=== PATIENT | male | born 1940 | race Caucasian/White ===

== ENCOUNTER 2018-10-05 11:29 | Observation (INO) | payer OTHER, SELFPAY ==
[2018-10-05] VITALS (8 sets, daily range): BP systolic 91–122; BP diastolic 49–67; PULSE 58–115; RESP 16–25; TEMP 36.7–38.2; O2SAT 95–97; BMI 30.4
--- NOTE | 2018-10-05 12:10 | DI.RAD.S_ITS ---
PROCEDURE: XR CHEST 1V INDICATIONS: FEVER TECHNIQUE: One view of the chest was acquired. COMPARISON: None. FINDINGS: Surgical changes and devices: None. Lungs and pleura: Patchy areas of opacity are present overlying the right upper lobe. Mediastinum: Mediastinal contours appear normal. Heart size is normal. Bones and chest wall: No suspicious bony lesions. Overlying soft tissues appear unremarkable. IMPRESSION: Patchy right upper lobe opacities suggestive of pneumonia. Recommend interval followup to document resolution and exclude presence of underlying mass lesion. Dictated by: Lisa Jerry M.D. on 10/05/2018 at 12:31 Approved by: Lisa Jerry M.D. on 10/05/2018 at 12:32
[2018-10-05] MEDS: SODIUM CHLORIDE 0.9% 1,000 ML 200 ML IV (12:31)
[2018-10-05] MEDS: ACETAMINOPHEN 325 MG TABLET 650 MG PO ×2 (12:31→18:33)
[2018-10-05 12:41] LABS: Add Manual Diff / Slide Review NO; Basophils Percent Auto 0.1 % (0-2); Hemoglobin 14.1 g/dL (13.5-17.5); Lymphocytes Percent Auto 3.9 % (25-40); Mean Corpuscular HGB Conc 33.5 % (30-36); Mean Corpuscular Hemoglobin 31.4 PG (26-34); Mean Corpuscular Volume 93.8 fL (80-100); Monocytes Percent Auto 7.4 % (3-14); Neutrophils Absolute Auto 13600 /uL (3000-5900); Neutrophils Percent Auto 88.6 % (50-75); Platelet Count 187 X10^3/uL (150-400); Red Blood Cell Count 4.48 X10^6/uL (4.5-5.9); Red Cell Distribution Width 13.6 % (11.6-14.8); White Blood Cell Count 15.3 X10^3/uL (4.5-11.0)
[2018-10-05 12:45] LABS: INR 1.1 (0.9-1.3)
[2018-10-05 12:47] LABS: PTT Partial Thromboplastin Tim 25 SECONDS (26.4-36.2)
[2018-10-05 12:52] LABS: Lactate (Lactic Acid) 1.2 mmol/L (0.7-2.1)
[2018-10-05 12:54] LABS: Alanine Aminotransferase 23 IU/L (21-72); Albumin 4.6 g/dL (3.5-5.0); Albumin Globulin Ratio 1.8 (1.0-2.8); Alkaline Phosphatase 68 U/L (38-126); Aspartate Aminotransferase 27 IU/L (17-59); Bilirubin Total 0.8 mg/dL (0.2-1.3); Blood Urea Nitrogen 20 mg/dL (9-20); Calcium 10.3 mg/dL (8.4-10.2); Carbon Dioxide 24 mmol/L (22-32); Chloride 106 mmol/L (98-107); Estimated Glomerular Filt Rate > 60.0 mL/min (>60); Globulin 2.6 g/dL (1.7-4.1); Glucose 118 mg/dL (80-110); HEMOLYSIS < 15 (0-50); Potassium 4.2 mmol/L (3.4-5.1); Sodium 142 mmol/L (137-145); Total Protein 7.2 g/dL (6.3-8.2)
[2018-10-05 13:14] LABS: Procalcitonin 0.92 ng/mL (<0.5)
--- NOTE | 2018-10-05 13:25 | ED_ITS ---
HPI - Fever General Chief Complaint: Fever Stated Complaint: SHIVERING UNCONTROLLABY THIS AM, FELL, HIT HEAD Time Seen by Provider: 10/05/18 12:10 Source: patient and family Mode of arrival: ambulatory History of Present Illness HPI Narrative: Patient is an 78-year-old male Who presents with fever shaking and productive cough. He denies any shortness of breath or chest pain. His is the primary historian he does have some mild dementia. He denies any symptoms. he has no other symptoms abdominal pain nausea, vomiting, urinary tract symptoms. Related Data Home Medications Medication Instructions Recorded Confirmed Vitamin B-12 1 tab PO DAILY 10/05/18 10/05/18 lisinopril 10 mg PO QPM 10/05/18 10/05/18 multivitamin 1 tab PO DAILY 10/05/18 10/05/18 simvastatin 40 mg PO QPM 10/05/18 10/05/18 Allergies Allergy/AdvReac Type Severity Reaction Status Date / Time No Known Drug Allergies Allergy Verified 10/05/18 11:43 Review of Systems Review of Systems All systems reviewed & are unremarkable except as noted in HPI and below Constitutional Reports body ache(s), Reports chills, Reports fever(s) and Denies frequent falls Eyes Denies change in vision, Denies eye discharge, Denies irritation and Denies loss of vision Cardiovascular Denies chest pain, Denies irregular heart rhythm, Denies lightheadedness, Denies palpitations and Denies orthopnea Respiratory Reports change in phlegm color and Reports chest congestion Gastrointestinal Gastrointestinal: Denies abdominal pain, Denies change in bowel habits, Denies diarrhea, Denies nausea and Denies vomiting Genitourinary Denies hematuria, Denies flank pain, Denies urinary incontinence and Denies urinary urgency Musculoskeletal Denies back pain, Denies muscle weakness, Denies numbness and Denies tingling Integumentary/Breasts Denies pruritus, Denies erythema, Denies rash and Denies wounds Neurologic Denies frequent falls, Denies loss of vision, Denies numbness and Denies tingling Endocrine Denies palpitations [facility] Medical History Dementia (Acute) Hyperlipidemia (Acute) Hypertension (Acute) Surgical History H/O inguinal hernia repair (Acute) Family History Father Cancer Social History household members: spouse, family and children Smoking Status: Never smoker Exam Initial Vital Signs Initial Vital Signs: Vital Signs Temperature 100.7 F H 10/05/18 11:43 Pulse Rate 115 H 10/05/18 11:43 Respiratory Rate 20 10/05/18 11:43 Blood Pressure 122/67 10/05/18 11:43 Pulse Oximetry 95 10/05/18 11:43 GENERAL: alert elderly male responsive HEENT: Head atraumatic,EOMI, pupils reactive, neck is supple no JVD no meningeal signs CARDIOVASCULAR: Regular rate and rhythm without murmurs, rubs or gallops. RESPIRATORY: Breath sounds equal bilaterally, no wheezes rales or rhonchi. speaks in full sentences no respiratory distress ABDOMEN: Soft, nontender. Normoactive bowel sounds all 4 quadrants. No guarding or rebound. : No CVA tenderness EXTREMITIES: Normal range of motion, no clubbing or edema. Neurovascularly intact NEUROLOGICAL: Alert and and oriented moving all extremities no focal to have SKIN: Warm, dry, no laceration, no petechiae, no rashes or lesions. Course Orders Ordered: ED Orders 10/06/18 05:31 Basic Metabolic Panel Routine Complete Blood Count AUTO DIFF Routine Acetaminophen (Tylenol) 650 mg PO Q6HR PRN PRN Reason: As Needed for Fever/Mild Pain Last Admin: 10/05/18 18:33 Dose: 650 mg Hydrocodone Bitart/Acetaminophen (Spreckels 5/325) 1 tab PO Q4HR PRN PRN Reason: Pain, Moderate (4-6) Bisacodyl (Dulcolax) 10 mg AK DAILY PRN PRN Reason: Constipation Docusate Sodium (Colace) 100 mg PO BID [facility] Last Admin: 10/05/18 20:52 Dose: 100 mg Enoxaparin Sodium (Lovenox) 40 mg SUBCUT DAILY KARLA Sodium Chloride (Normal Saline 0.9%) 1,000 mls @ 200 mls/hr IV CONT KARLA Last Infusion: 10/05/18 14:10 Dose: 0 mls/hr Infusion: 10/05/18 13:20 Dose: 999 mls/hr Admin: 10/05/18 12:31 Dose: 200 mls/hr Ceftriaxone Sodium/Dextrose (Rocephin) 1 gm in 50 mls @ 100 mls/hr IV Q24H KARLA Azithromycin 500 mg/ Dextrose 250 mls @ 250 mls/hr IV Q24H KARLA Lactated Ringer's (Lactated Ringers) 1,000 mls @ 125 mls/hr IV CONT KARLA Last Admin: 10/06/18 00:32 Dose: 125 mls/hr Infusion: 10/06/18 00:32 Dose: 125 mls/hr Admin: 10/05/18 17:02 Dose: 125 mls/hr Morphine Sulfate (Morphine) 2 mg IV Q4HR PRN PRN Reason: Pain, Moderate (4-6) Ondansetron HCl (Zofran) 4 mg IV Q8HR PRN PRN Reason: Nausea And Vomiting Simvastatin (Zocor) 40 mg PO BEDTIME KARLA Last Admin: 10/05/18 20:53 Dose: 40 mg Discontinued Medications Acetaminophen (Tylenol) 650 mg PO NOW ONE Stop: 10/05/18 12:11 Last Admin: 10/05/18 12:31 Dose: 650 mg Ceftriaxone Sodium/Dextrose (Rocephin) 1 gm in 50 mls @ 100 mls/hr IV NOW ONE Stop: 10/05/18 13:45 Last Infusion: 10/05/18 14:09 Dose: 0 mls/hr Admin: 10/05/18 13:32 Dose: 100 mls/hr Azithromycin 500 mg/ Dextrose 250 mls @ 250 mls/hr IV NOW ONE Stop: 10/05/18 13:17 Last Infusion: 10/05/18 15:26 Dose: 250 mls/hr Infusion: 10/05/18 14:54 Dose: 250 mls/hr Admin: 10/05/18 14:09 Dose: 250 mls/hr Sodium Chloride (Normal Saline 0.9%) 1,000 mls @ 1,000 mls/hr IV BOLUS ONE Stop: 10/05/18 15:15 Last Infusion: 10/05/18 16:50 Dose: 1,000 mls/hr Infusion: 10/05/18 14:53 Dose: 1,000 mls/hr Admin: 10/05/18 14:26 Dose: 1,000 mls/hr Sodium Chloride (Normal Saline 0.9%) 1,000 mls @ 1,000 mls/hr IV BOLUS ONE Stop: 10/05/18 15:21 Last Admin: 10/05/18 16:17 Dose: 1,000 mls/hr Vital Signs - 8 hr 10/06/18 05:02 Temperature 98.0 F Pulse Rate 98 H Respiratory Rate 16 Blood Pressure 126/52 L Pulse Oximetry 96 MDM - Fever Lab Data Attestation: I reviewed the patient's lab results. Result diagrams: 10/06/18 05:31 10/06/18 05:31 Lab Results 10/05/18 10/05/18 10/05/18 Range/Units 12:35 12:35 12:35 WBC 15.3 H (4.5-11.0) X10^3/uL RBC 4.48 L (4.5-5.9) X10^6/uL Hgb 14.1 (13.5-17.5) g/dL Hct 42.0 (41-53) % MCV 93.8 (80-100) fL MCH 31.4 (26-34) PG MCHC 33.5 (30-36) % RDW 13.6 (11.6-14.8) % Plt Count 187 (150-400) X10^3/uL Neut % (Auto) 88.6 H (50-75) % Lymph % (Auto) 3.9 L (25-40) % Ward % (Auto) 7.4 (3-14) % Eos % (Auto) 0.0 L (2-4) % Baso % (Auto) 0.1 (0-2) % Neut # (Auto) 35803 H (3289-6402) /uL PT 12.0 (10.1-12.7) SECONDS INR 1.1 (0.9-1.3) APTT 25 L (26.4-36.2) SECONDS Sodium (137-145) mmol/L Potassium (3.4-5.1) mmol/L Chloride (98-107) mmol/L Carbon Dioxide (22-32) mmol/L BUN (9-20) mg/dL Creatinine (0.66-1.25) mg/dL Estimated GFR (>60) mL/min BUN/Creatinine Ratio (6-22) Glucose (80-110) mg/dL Lactate (0.7-2.1) mmol/L Calcium (8.4-10.2) mg/dL Total Bilirubin (0.2-1.3) mg/dL AST (17-59) IU/L ALT (21-72) IU/L Alkaline Phosphatase (38-126) U/L Total Creatine Kinase (55-170) U/L CK-MB (CK-2) CK-MB (CK-2) Rel Index Troponin I (0.01-0.034) ng/mL Total Protein (6.3-8.2) g/dL Albumin (3.5-5.0) g/dL Globulin (1.7-4.1) g/dL Albumin/Globulin Ratio (1.0-2.8) Procalcitonin 0.92 H (<0.5) ng/mL Urine Color Urine Appearance Urine pH (4.5-8.0) Ur Specific [place] (1.000-1.035) Urine Protein (Negative) Urine Glucose (UA) (Normal) g/dL Urine Ketones (NEGATIVE) Urine Occult Blood (Negative) Urine Nitrate (Negative) Urine Bilirubin (NEGATIVE) Urine Urobilinogen (0.2) E.U./dL Ur Leukocyte Esterase (NEGATIVE) Urine RBC (0-5/HPF) Urine WBC (0-5/HPF) Ur Squamous Epith Cells Urine Bacteria (None) Ur Culture Indicated? Micro UA Comment 10/05/18 10/05/18 10/05/18 Range/Units 12:35 12:35 12:35 WBC (4.5-11.0) X10^3/uL RBC (4.5-5.9) X10^6/uL Hgb (13.5-17.5) g/dL Hct (41-53) % MCV (80-100) fL MCH (26-34) PG MCHC (30-36) % RDW (11.6-14.8) % Plt Count (150-400) X10^3/uL Neut % (Auto) (50-75) % Lymph % (Auto) (25-40) % Ward % (Auto) (3-14) % Eos % (Auto) (2-4) % Baso % (Auto) (0-2) % Neut # (Auto) (3411-1025) /uL PT (10.1-12.7) SECONDS INR (0.9-1.3) APTT (26.4-36.2) SECONDS Sodium 142 (137-145) mmol/L Potassium 4.2 (3.4-5.1) mmol/L Chloride 106 (98-107) mmol/L Carbon Dioxide 24 (22-32) mmol/L BUN 20 (9-20) mg/dL Creatinine 0.80 (0.66-1.25) mg/dL Estimated GFR > 60.0 (>60) mL/min BUN/Creatinine Ratio 25.0 H (6-22) Glucose 118 H (80-110) mg/dL Lactate 1.2 (0.7-2.1) mmol/L Calcium 10.3 H (8.4-10.2) mg/dL Total Bilirubin 0.8 (0.2-1.3) mg/dL AST 27 (17-59) IU/L ALT 23 (21-72) IU/L Alkaline Phosphatase 68 (38-126) U/L Total Creatine Kinase 92 (55-170) U/L CK-MB (CK-2) TNP CK-MB (CK-2) Rel Index TNP Troponin I 0.020 (0.01-0.034) ng/mL Total Protein 7.2 (6.3-8.2) g/dL Albumin 4.6 (3.5-5.0) g/dL Globulin 2.6 (1.7-4.1) g/dL Albumin/Globulin Ratio 1.8 (1.0-2.8) Procalcitonin (<0.5) ng/mL Urine Color Urine Appearance Urine pH (4.5-8.0) Ur Specific [place] (1.000-1.035) Urine Protein (Negative) Urine Glucose (UA) (Normal) g/dL Urine Ketones (NEGATIVE) Urine Occult Blood (Negative) Urine Nitrate (Negative) Urine Bilirubin (NEGATIVE) Urine Urobilinogen (0.2) E.U./dL Ur Leukocyte Esterase (NEGATIVE) Urine RBC (0-5/HPF) Urine WBC (0-5/HPF) Ur Squamous Epith Cells Urine Bacteria (None) Ur Culture Indicated? Micro UA Comment 10/05/18 10/06/18 10/06/18 Range/Units 13:48 05:31 05:31 WBC 12.8 H (4.5-11.0) X10^3/uL RBC 3.57 L (4.5-5.9) X10^6/uL Hgb 11.6 L (13.5-17.5) g/dL Hct 33.5 L (41-53) % MCV 93.9 (80-100) fL MCH 32.4 (26-34) PG MCHC 34.5 (30-36) % RDW 13.7 (11.6-14.8) % Plt Count 147 L (150-400) X10^3/uL Neut % (Auto) 76.5 H (50-75) % Lymph % (Auto) 14.0 L (25-40) % Ward % (Auto) 8.4 (3-14) % Eos % (Auto) 0.8 L (2-4) % Baso % (Auto) 0.3 (0-2) % Neut # (Auto) 9800 H (8569-1815) /uL PT (10.1-12.7) SECONDS INR (0.9-1.3) APTT (26.4-36.2) SECONDS Sodium 139 (137-145) mmol/L Potassium 4.0 (3.4-5.1) mmol/L Chloride 107 (98-107) mmol/L Carbon Dioxide 25 (22-32) mmol/L BUN 16 (9-20) mg/dL Creatinine 0.70 (0.66-1.25) mg/dL Estimated GFR > 60.0 (>60) mL/min BUN/Creatinine Ratio 22.9 H (6-22) Glucose 93 (80-110) mg/dL Lactate (0.7-2.1) mmol/L Calcium 9.6 (8.4-10.2) mg/dL Total Bilirubin (0.2-1.3) mg/dL AST (17-59) IU/L ALT (21-72) IU/L Alkaline Phosphatase (38-126) U/L Total Creatine Kinase (55-170) U/L CK-MB (CK-2) CK-MB (CK-2) Rel Index Troponin I (0.01-0.034) ng/mL Total Protein (6.3-8.2) g/dL Albumin (3.5-5.0) g/dL Globulin (1.7-4.1) g/dL Albumin/Globulin Ratio (1.0-2.8) Procalcitonin (<0.5) ng/mL Urine Color Yellow Urine Appearance Clear Urine pH 5.0 (4.5-8.0) Ur Specific [place] 1.025 (1.000-1.035) Urine Protein Negative (Negative) Urine Glucose (UA) Negative (Normal) g/dL Urine Ketones Negative (NEGATIVE) Urine Occult Blood Negative (Negative) Urine Nitrate Negative (Negative) Urine Bilirubin Negative (NEGATIVE) Urine Urobilinogen 0.2 (0.2) E.U./dL Ur Leukocyte Esterase Negative (NEGATIVE) Urine RBC 0-1/hpf (0-5/HPF) Urine WBC 1-5/hpf (0-5/HPF) Ur Squamous Epith Cells 0-1 /hpf Urine Bacteria Few (2-10) H (None) Ur Culture Indicated? Cult not indicated Micro UA Comment Not Reportable Imaging Data Chest x-ray: Attestation: I personally reviewed and interpreted this imaging study as follows: My impression: Right upper lobe pneumonia Radiologist's impression: [place] [id number] XRay Report Signed Patient: Costa Evans [facility]#: [id number] : 8Acct:[id number] Age/Sex: 78 / MDate of Service: 10/05/18 Loc: ED Accession Number: [id number] Procedure: XR chest 1V Ordering Provider: Irma Mcfadden D.O. PROCEDURE: XR CHEST 1V INDICATIONS: FEVER TECHNIQUE: One view of the chest was acquired. COMPARISON: None. FINDINGS: Surgical changes and devices: None. Lungs and pleura: Patchy areas of opacity are present overlying the right upper lobe. Mediastinum: Mediastinal contours appear normal. Heart size is normal. Bones and chest wall: No suspicious bony lesions. Overlying soft tissues appear unremarkable. IMPRESSION: Patchy right upper lobe opacities suggestive of pneumonia. Recommend interval followup to document resolution and exclude presence of underlying mass lesion. Dictated by: Lisa Jerry M.D. on 10/05/2018 at 12:31 ECG Data Attestation: I personally reviewed and interpreted this ECG as follows: Prior ECG tracings: not available for review Interpretation: wide complex sinus rhythm rate 91 left bundle-branch block no ST changes no priors to compare MDM Narrative Medical decision making narrative: patient is febrile and tachycardic initially he has a signs and symptoms with an x-ray supportive of pneumonia. He has no risk factors for hospital-acquired organisms. I have placed him on Rocephin and Azithromycin discussed case with Dr. Awan who happily accepts patient. Discharge Plan Departure Patient Disposition: Admitted As Inpatient Clinical Impression: Community acquired pneumonia Discharge Date/Time: 10/05/18 14:54 Interventions: ED Discharge Assessment Last Done: 10/05/18 14:25 Admit Date/Time: 10/05/18 14:26 Admit Provider: Adriane Awan
[2018-10-05] MEDS: CEFTRIAXONE 1 GM/50 ML FROZ.PIGGY IV (13:32)
[2018-10-05 13:53] LABS: Appearance Urine UA CLEAR; Bilirubin Urine UA NEGATIVE (NEGATIVE); Color Urine UA YELLOW; Glucose Urine UA NEGATIVE (Normal); Ketones Urine UA NEGATIVE (NEGATIVE); Leukocyte Esterase Urine UA NEGATIVE (NEGATIVE); Nitrite Urine UA NEGATIVE (Negative); Occult Blood Urine UA NEGATIVE (Negative); Protein Urine UA NEGATIVE (Negative); Specific Gravity Urine UA 1.025 (1.000-1.035); Urobilinogen Urine UA 0.2 E.U./dL (0.2)
[2018-10-05 13:58] LABS: Creatine Kinase 92 U/L (55-170)
--- NOTE | 2018-10-05 14:06 | PC.NURSE ---
Pt refuses to keep SPO2 on his finger.
[2018-10-05] MEDS: AZITHROMYCIN 500 MG in DEXTROSE 5% IN WATER 250 ML IV (14:09)
[2018-10-05 14:10] LABS: Bacteria Urine Few (2-10); Culture Indicated Urine Cult Not Indicated; RBC Urine 0-1/HPF (0-5/HPF); Squamous Epithelial Cell Urine 0-1 /HPF; WBC Urine 1-5/HPF (0-5/HPF)
[2018-10-05] MEDS: SODIUM CHLORIDE 0.9% 1,000 ML 1000 ML IV ×2 (14:26→16:17)
--- NOTE | 2018-10-05 15:53 | P.HP_ITS ---
History of Present Illness Date Patient Seen: 10/05/18 Chief complaint: Shaking chills, fever, fell Narrative: The Patient is a 78 y/o male with mild dementia who was well until today when he developed shaking chills, productive cough, and fever. Per his significant other he was more confused and did not seem like himself. He denies shortness of breath, chest pain, or palpitations. The patient is not sure of how high his temperature was, denies aching joints, but has had some headache off an on. He has had loose stool but no diarrhea, vomiting, hemetemses, bright red blood per rectum, or melena. He has a slow urine stream, urgency, but no dysuria, pyuria, hematuria. He denies joint pains, rashes, weight loss, or night sweats. The patient was evaluated in the Emergency Department and found to have Sepsis secondary to Pneumonia. He was given IV hydration, started on antibiotics and admitted to the hospital for further evaluation Patient History Medical History Dementia (Acute) Hyperlipidemia (Acute) Hypertension (Acute) Surgical History H/O inguinal hernia repair (Acute) Family & Social History Safety & Behavioral: Feels Safe in Current Yes Environment Tobacco & Substance use: Smoking Status Never smoker alcohol intake frequency other Substance Use Type does not use Meds Home Medications Medication Instructions Recorded Confirmed Type Vitamin B-12 1 tab PO DAILY 10/05/18 10/05/18 History lisinopril 10 mg PO QPM 10/05/18 10/05/18 History multivitamin 1 tab PO DAILY 10/05/18 10/05/18 History simvastatin 40 mg PO QPM 10/05/18 10/05/18 History Allergies Allergy/AdvReac Type Severity Reaction Status Date / Time No Known Drug Allergies Allergy Verified 10/05/18 11:43 Review of Systems Review of Systems All systems reviewed & are unremarkable except as noted in HPI and below Exam Vital Signs (past 8 hours): - 10/05/18 11:43 10/05/18 13:34 10/05/18 13:40 Temperature 100.7 F H 99.3 F Pulse Rate 115 H 92 H Respiratory Rate 20 24 Blood Pressure 122/67 Blood Pressure [Left Arm] 109/53 L Pulse Oximetry 95 95 10/05/18 14:03 10/05/18 14:25 Temperature Pulse Rate 76 84 Respiratory Rate 20 25 H Blood Pressure 91/52 L Blood Pressure [Left Arm] 91/52 L Pulse Oximetry 95 97 Oxygen Delivery Method Room Air Narrative Exam Narrative: Pleasant male in NAD HEENT: NC/AT, EOMI, Oropharynx : Clear, neck supple without adenopathy Lungs: decreased breath sounds with occassional scattered rhonchi CV; RRR nl Sl S2 2/6 JACQUES Abd: soft/ non tender/ non distended Back: no lesions Skin: no lesions Ext: no edema Neuro: non focal Psych- appears appropriate, no hallucinations Objective Labs Result Diagrams: 10/05/18 12:35 10/05/18 12:35 Labs: Laboratory Results - last 24 hr 10/05/18 10/05/18 10/05/18 12:35 12:35 12:35 WBC 15.3 H RBC 4.48 L Hgb 14.1 Hct 42.0 MCV 93.8 MCH 31.4 MCHC 33.5 RDW 13.6 Plt Count 187 Neut % (Auto) 88.6 H Lymph % (Auto) 3.9 L [place] % (Auto) 7.4 Eos % (Auto) 0.0 L Baso % (Auto) 0.1 Neut # (Auto) 82904 H PT 12.0 INR 1.1 APTT 25 L Sodium Potassium Chloride Carbon Dioxide BUN Creatinine Estimated GFR BUN/Creatinine Ratio Glucose Lactate Calcium Total Bilirubin AST ALT Alkaline Phosphatase Total Creatine Kinase CK-MB (CK-2) CK-MB (CK-2) Rel Index Troponin I Total Protein Albumin Globulin Albumin/Globulin Ratio Procalcitonin 0.92 H Urine Color Urine Appearance Urine pH Ur Specific [place] Urine Protein Urine Glucose (UA) Urine Ketones Urine Occult Blood Urine Nitrate Urine Bilirubin Urine Urobilinogen Ur Leukocyte Esterase Urine RBC Urine WBC Ur Squamous Epith Cells Urine Bacteria Ur Culture Indicated? Micro UA Comment 10/05/18 10/05/18 10/05/18 12:35 12:35 12:35 WBC RBC Hgb Hct MCV MCH MCHC RDW Plt Count Neut % (Auto) Lymph % (Auto) [place] % (Auto) Eos % (Auto) Baso % (Auto) Neut # (Auto) PT INR APTT Sodium 142 Potassium 4.2 Chloride 106 Carbon Dioxide 24 BUN 20 Creatinine 0.80 Estimated GFR > 60.0 BUN/Creatinine Ratio 25.0 H Glucose 118 H Lactate 1.2 Calcium 10.3 H Total Bilirubin 0.8 AST 27 ALT 23 Alkaline Phosphatase 68 Total Creatine Kinase 92 CK-MB (CK-2) TNP CK-MB (CK-2) Rel Index TNP Troponin I 0.020 Total Protein 7.2 Albumin 4.6 Globulin 2.6 Albumin/Globulin Ratio 1.8 Procalcitonin Urine Color Urine Appearance Urine pH Ur Specific [place] Urine Protein Urine Glucose (UA) Urine Ketones Urine Occult Blood Urine Nitrate Urine Bilirubin Urine Urobilinogen Ur Leukocyte Esterase Urine RBC Urine WBC Ur Squamous Epith Cells Urine Bacteria Ur Culture Indicated? Micro UA Comment 10/05/18 13:48 WBC RBC Hgb Hct MCV MCH MCHC RDW Plt Count Neut % (Auto) Lymph % (Auto) [place] % (Auto) Eos % (Auto) Baso % (Auto) Neut # (Auto) PT INR APTT Sodium Potassium Chloride Carbon Dioxide BUN Creatinine Estimated GFR BUN/Creatinine Ratio Glucose Lactate Calcium Total Bilirubin AST ALT Alkaline Phosphatase Total Creatine Kinase CK-MB (CK-2) CK-MB (CK-2) Rel Index Troponin I Total Protein Albumin Globulin Albumin/Globulin Ratio Procalcitonin Urine Color Yellow Urine Appearance Clear Urine pH 5.0 Ur Specific [place] 1.025 Urine Protein Negative Urine Glucose (UA) Negative Urine Ketones Negative Urine Occult Blood Negative Urine Nitrate Negative Urine Bilirubin Negative Urine Urobilinogen 0.2 Ur Leukocyte Esterase Negative Urine RBC 0-1/hpf Urine WBC 1-5/hpf Ur Squamous Epith Cells 0-1 /hpf Urine Bacteria Few (2-10) H Ur Culture Indicated? Cult not indicated Micro UA Comment Not Reportable Assessment & Plan (1) Sepsis: Problem details: continue IV fluids, antibiotics Current visit: Yes Status: Acute (2) Hypertension: Problem details: Hold lisinopril as the patient was hypotensive earlier Current visit: Yes Status: Acute (3) Hyperlipidemia: Problem details: continue simvastatin Current visit: Yes Status: Acute (4) Dementia: Problem details: will follow closely Current visit: Yes Status: Acute
[2018-10-05] MEDS: LACTATED RINGERS 1,000 ML 125 ML IV (17:02)
--- NOTE | 2018-10-05 18:16 | PC.NURSE ---
1530: Pt admitted to acute care from ER. Transferred via stretcher. Pt alert/confused. Significant other/family member at bedside assisting with admission assessment/questions. Pt denies pain. Recent fall/high risk. Bed alarm on. Oriented pt and family to room and call light.
[2018-10-05] MEDS: DOCUSATE 100 MG CAPSULE PO (20:52)
[2018-10-05] MEDS: SIMVASTATIN 40 MG TABLET PO (20:53)
[2018-10-06] MEDS: LACTATED RINGERS 1,000 ML 125 ML IV ×2 (00:32→09:25)
[2018-10-06 05:02] VITALS: BP 126/52; PULSE 98; RESP 16; TEMP 36.7; O2SAT 96
[2018-10-06 05:58] LABS: Add Manual Diff / Slide Review NO; Basophils Percent Auto 0.3 % (0-2); Eosinophils Percent Auto 0.8 % (2-4); Hematocrit 33.5 % (41-53); Hemoglobin 11.6 g/dL (13.5-17.5); Mean Corpuscular HGB Conc 34.5 % (30-36); Mean Corpuscular Hemoglobin 32.4 PG (26-34); Mean Corpuscular Volume 93.9 fL (80-100); Monocytes Percent Auto 8.4 % (3-14); Neutrophils Absolute Auto 9800 /uL (3000-5900); Neutrophils Percent Auto 76.5 % (50-75); Platelet Count 147 X10^3/uL (150-400); Red Blood Cell Count 3.57 X10^6/uL (4.5-5.9); Red Cell Distribution Width 13.7 % (11.6-14.8); White Blood Cell Count 12.8 X10^3/uL (4.5-11.0)
[2018-10-06 06:15] LABS: BUN Creatinine Ratio 22.9 (6-22); Blood Urea Nitrogen 16 mg/dL (9-20); Calcium 9.6 mg/dL (8.4-10.2); Carbon Dioxide 25 mmol/L (22-32); Chloride 107 mmol/L (98-107); Estimated Glomerular Filt Rate > 60.0 mL/min (>60); Glucose 93 mg/dL (80-110); HEMOLYSIS < 15 (0-50); Sodium 139 mmol/L (137-145)
[2018-10-06 09:10] VITALS: BP 119/55; PULSE 70; RESP 20; TEMP 36.5; O2SAT 97
[2018-10-06] MEDS: DOCUSATE 100 MG CAPSULE PO (09:28)
[2018-10-06] MEDS: ENOXAPARIN 40 MG/0.4 ML SYRINGE SUBCUT (09:28)
--- NOTE | 2018-10-06 12:58 | PM.DS.1 ---
History of Present Illness Chief complaint: Shaking chills, fever, fell Narrative: The Patient is a 78 y/o male with mild dementia who was well until today when he developed shaking chills, productive cough, and fever. Per his significant other he was more confused and did not seem like himself. He denies shortness of breath, chest pain, or palpitations. The patient is not sure of how high his temperature was, denies aching joints, but has had some headache off an on. He has had loose stool but no diarrhea, vomiting, hemetemses, bright red blood per rectum, or melena. He has a slow urine stream, urgency, but no dysuria, pyuria, hematuria. He denies joint pains, rashes, weight loss, or night sweats. The patient was evaluated in the Emergency Department and found to have Sepsis secondary to Pneumonia. He was given IV hydration, started on antibiotics and admitted to the hospital for further evaluation Discharge Providers Date of admission: 10/05/18 14:26 Primary care physician: Brady Cheung MD Consults: 10/05/18 16:31 Consult to [employer] Routine Comment: assess resources/needs for d/c 10/06/18 10:13 Consult to Speech Therapy Evaluate & Treat Comment: Physician Instructions: Evaluate and treat Discharge provider: James Jansen MD Discharge Date: 10/06/18 Summary Discharge Diagnosis: 1. Pneumonia, right upper lobe, presumed bacterial, treated for usual gram-positive and negative organisms 2. Mild sepsis 3. Dementia Hospital Course: Patient admitted with mild sepsis due to pneumonia. Mainly presented as fever and increased confusion. He was volume resuscitated and started on Rocephin and Zithromax. He responded quickly to antibiotics. He had low-grade fever which resolved. WBCs improved. He is eating well and appears back to baseline with his dementia. He is being discharged on oral Zithromax 1 more dose and cefuroxime 1 more week. Vitals are stable. Lung sound clear on exam. He will follow up with Dr. Cheung. Unclear whether he is up-to-date on his pneumonia vaccinations and his will follow up on this when he is seen for hospital follow-up. Status at Discharge Functional status at discharge: independent ambulation Overall status at discharge: patient is back to baseline Time Spent with Patient Less than 30 minutes Exam Vital Signs (past 8 hours): - 10/06/18 05:02 10/06/18 09:10 Temperature 98.0 F 97.7 F Pulse Rate 98 H 70 Respiratory Rate 16 20 Blood Pressure 126/52 L 119/55 L Pulse Oximetry 96 97 Oxygen Delivery Method Room Air Objective Labs Result Diagrams: 10/06/18 05:31 10/06/18 05:31 Labs: Laboratory Results - last 24 hr 10/05/18 10/05/18 10/05/18 12:35 12:35 13:48 WBC RBC Hgb Hct MCV MCH MCHC RDW Plt Count Neut % (Auto) Lymph % (Auto) [place] % (Auto) Eos % (Auto) Baso % (Auto) Neut # (Auto) Sodium Potassium Chloride Carbon Dioxide BUN Creatinine Estimated GFR BUN/Creatinine Ratio Glucose Calcium Total Creatine Kinase 92 CK-MB (CK-2) TNP CK-MB (CK-2) Rel Index TNP Troponin I 0.020 Procalcitonin 0.92 H Urine Color Yellow Urine Appearance Clear Urine pH 5.0 Ur Specific [place] 1.025 Urine Protein Negative Urine Glucose (UA) Negative Urine Ketones Negative Urine Occult Blood Negative Urine Nitrate Negative Urine Bilirubin Negative Urine Urobilinogen 0.2 Ur Leukocyte Esterase Negative Urine RBC 0-1/hpf Urine WBC 1-5/hpf Ur Squamous Epith Cells 0-1 /hpf Urine Bacteria Few (2-10) H Ur Culture Indicated? Cult not indicated Micro UA Comment Not Reportable 10/06/18 10/06/18 05:31 05:31 WBC 12.8 H RBC 3.57 L Hgb 11.6 L Hct 33.5 L MCV 93.9 MCH 32.4 MCHC 34.5 RDW 13.7 Plt Count 147 L Neut % (Auto) 76.5 H Lymph % (Auto) 14.0 L [place] % (Auto) 8.4 Eos % (Auto) 0.8 L Baso % (Auto) 0.3 Neut # (Auto) 9800 H Sodium 139 Potassium 4.0 Chloride 107 Carbon Dioxide 25 BUN 16 Creatinine 0.70 Estimated GFR > 60.0 BUN/Creatinine Ratio 22.9 H Glucose 93 Calcium 9.6 Total Creatine Kinase CK-MB (CK-2) CK-MB (CK-2) Rel Index Troponin I Procalcitonin Urine Color Urine Appearance Urine pH Ur Specific [place] Urine Protein Urine Glucose (UA) Urine Ketones Urine Occult Blood Urine Nitrate Urine Bilirubin Urine Urobilinogen Ur Leukocyte Esterase Urine RBC Urine WBC Ur Squamous Epith Cells Urine Bacteria Ur Culture Indicated? Micro UA Comment Discharge Plan Discharge Plan Patient Disposition: Home Discharge Med Rec/Prescriptions Prescriptions: New cefuroxime axetil 500 mg tablet 500 mg PO Q12H 8 Days Qty: 16 RF: 0 azithromycin 500 mg tablet 500 mg PO DAILY 1 Days Qty: 1 RF: 0 Continue multivitamin Tablet 1 tab PO DAILY RF: 0 simvastatin 40 mg Tablet 40 mg PO QPM RF: 0 lisinopril 10 mg Tablet 10 mg PO QPM RF: 0 Vitamin B-12 1 tab PO DAILY RF: 0 Follow up/Referrals: Brady Cheung MD [Primary Care Provider] - 1 Week Provider Discharge Instructions Diet: Regular Discharge Data Primary Care Provider: Brady Cheung Attending Provider: Adriane Awan Admit Date/Time: 10/05/18 14:26 Quality VTE Deep Vein Thrombosis/Pulmonary Embolism Present on Admission: No
[2018-10-06 13:11] VITALS: O2SAT 95
[2018-10-06] MEDS: AZITHROMYCIN 250 MG TABLET 500 MG PO (13:39)
[2018-10-06] MEDS: cefUROXime 250 MG TABLET 500 MG PO (13:39)
--- NOTE | 2018-10-06 14:31 | CM.DANOTE ---
Discharge Planning/Care Management DCP: assessment: case received, EMR reviewed and discussed in morning Team Rounds. PT is an 78 year old male who admitted to care of hospitalist team yesterday afternoon. Dr. Jansen noted that he had not yet seen pt but that he was ill and septic. Payer: [facility] PCP: Dr. Brittany Cheung. Went to room 1415 to check in with pt and introduce self and role. RN Maryana noted that a d/c to home order had been given by Dr. Jansen a bit earlier, pt's family was here and he had left for home at about 1400. She noted no d/c concerns were noted and that pt was feeling good and eager for d/c. CM Discharge Assessment Start: 10/06/18 14:29 Freq: Status: Active Protocol: Document 10/06/18 14:30 ITV (Rec: 10/06/18 14:31 ITV [id number]) Discharge Planning Assessment History Provided By Medical Record Household Members spouse family children Review Status In Process Next Review Type Continued Stay Review Document 10/06/18 14:31 ITV (Rec: 10/06/18 14:31 ITV [id number]) Discharge Planning Assessment Advance Directives? Yes History Provided By Medical Record Household Members spouse family children Comment pt had already left for home at time of interview attempt Review Status In Process Next Review Type Continued Stay Review
== END 2018-10-06 13:55 | disposition home or self-care (01) ==
LOC: ED 14:23 → AC 15:21
PROVIDERS: Admitting Provider Internal Medicine; Emergency Provider Emergency Medicine; PCP Internal Medicine; Visit Provider Internal Medicine
DX: J18.9 Pneumonia, unspecified organism (principal); A41.9 Sepsis, unspecified organism; R50.9 Fever, unspecified; I10 Essential (primary) hypertension; E78.5 Hyperlipidemia, unspecified; F03.90 Unspecified dementia, unspecified severity, without behavioral disturbance, psychotic disturbance, mood disturbance, and anxiety; E86.0 Dehydration
CPT/HCPCS: 36415; 36591; 71045; 80048; 80053; 81001; 82550; 83605; 84145; 84484; 85025; 85610; 85730; 87040; 93005; 96361; 96365; 96367; 99285; G0378; J1650

== ENCOUNTER → 2018-11-08 08:41 | Outpatient (CLI) | payer OTHER, SELFPAY ==
[2018-10-05 16:21] VITALS: BMI 30.4
--- NOTE | 2018-11-08 | DI.RAD.S_ITS ---
PROCEDURE: XR CHEST 2V INDICATIONS: Pneumonia, unspecified organism TECHNIQUE: 2 views of the chest were acquired. COMPARISON: [facility], CR, XR CHEST 1V, 10/05/2018, 12:23. FINDINGS: Surgical changes and devices: None. Lungs and pleura: No pleural effusions or pneumothorax. 9 x 5 mm nodular density is seen projecting in right upper lobe only seen on the PA view of the chest. This area was shown to have subtle ill-defined opacity on previous chest radiograph. Consider followup CT of chest for further evaluation of this region. Left lung is clear. Mediastinum: Mediastinal contours are normal. Heart size is enlarged. Bones and chest wall: No suspicious bony abnormalities. Soft tissues appear unremarkable. IMPRESSION: Interval resolution of previously noted airspace opacities in right upper lung field. 9 x 5 mm oval nodular density is seen projecting in right upper lung field seen only on PA view. A pulmonary nodule or mass cannot be excluded. Consider CT of chest for further evaluation. Dictated by: Marshal Walter M.D. on 11/08/2018 at 9:42 Approved by: Marshal Walter M.D. on 11/08/2018 at 9:43
== END ==
PROVIDERS: PCP Internal Medicine; Visit Provider Internal Medicine
DX: J18.9 Pneumonia, unspecified organism (principal)
CPT/HCPCS: 71046

== ENCOUNTER → 2018-12-01 09:52 | Outpatient (CLI) | payer MEDICARE, SELFPAY ==
[2018-10-05 16:21] VITALS: BMI 30.4
[2018-12-01 11:03] LABS: BUN Creatinine Ratio 25.7 (6-22); Blood Urea Nitrogen 18 mg/dL (9-20); Estimated Glomerular Filt Rate > 60.0 mL/min (>60)
== END ==
PROVIDERS: PCP Internal Medicine; Visit Provider Internal Medicine
DX: R91.1 Solitary pulmonary nodule (principal)
CPT/HCPCS: 36415; 82565; 84520

== ENCOUNTER → 2018-12-05 11:41 | Outpatient (CLI) | payer MEDICARE, SELFPAY ==
[2018-10-05 16:21] VITALS: BMI 30.4
--- NOTE | 2018-12-05 12:03 | DI.CT.S_ITS ---
PROCEDURE: CT CHEST W CON INDICATIONS: LUNG NODULE TECHNIQUE: After the administration of intravenous contrast, 5 mm thick sections acquired from the pulmonary apices to the posterior costophrenic angles. 7 mm thick coronal and sagittal MIP reformats were acquired. For radiation dose reduction, the following was used: automated exposure control, adjustment of mA and/or kV according to patient size. COMPARISON: [facility], CR, XR CHEST 1V, 10/05/2018, 12:23. [facility], CR, XR CHEST 2V, 11/08/2018, 8:46. FINDINGS: Image quality: Excellent. Lungs and pleura: No acute air space opacities. Very of prior plain film concern at the right upper lobe laterally in fact represents an osseous radiodensity at the inferior half of the right fifth rib in that area. No additional similar radiodensity is seen elsewhere No pleural effusions or pneumothorax. Central and peripheral airways are patent and normal in caliber. Mediastinum: Heart size is normal. No pericardial effusion. No mediastinal or hilar adenopathy by size criteria. Thoracic aorta and central pulmonary arteries are normal in size. Esophagus is normal in caliber. No hiatal hernia. Bones and chest wall: No suspicious bony lesions. The right fifth rib structure likely represents a benign bone island by appearance. No vertebral body compression fractures. No axillary or supraclavicular adenopathy by size criteria. Thyroid gland appears normal. Abdomen: Visualized upper abdominal solid organs appear normal. Upper abdominal bowel loops are normal in caliber. IMPRESSION: An ovoid radiodensity at the inferior half of the posterior right fifth rib causes the radiodensity seen by plain film thought to represent a pulmonary nodule. This can be followed in 3-6 months to confirm stability over time but it almost certainly represents a benign bone island. It is clearly seen by CT scanning but CT followup does not appear warranted. No additional radiodensity through the bones of the entire visualized chest and upper abdomen is found. Dictated by: Pepe Andrade M.D. on 12/05/2018 at 16:38 Approved by: Pepe Andrade M.D. on 12/05/2018 at 16:43
== END ==
PROVIDERS: PCP Internal Medicine; Visit Provider Internal Medicine
DX: R91.1 Solitary pulmonary nodule (principal)
CPT/HCPCS: 71260; Q9967

== ENCOUNTER → 2020-08-26 10:37 | Outpatient (CLI) | payer MEDICARE, SELFPAY ==
[2018-10-05 16:21] VITALS: BMI 30.4
--- NOTE | 2020-08-26 | DI.US.S_ITS ---
PROCEDURE: US RENAL COMPLETE INDICATIONS: Congenital occlusion of ureteropelvic junction TECHNIQUE: Real-time scanning was performed of the kidneys and bladder, with image documentation. COMPARISON: None. FINDINGS: Kidneys: Kidneys are normal in size. Right kidney measures 11.5 cm long; left kidney measures 11.4 cm long. Right renal cortical thickness is 1.5 cm; left renal cortical thickness is 1.7 cm. Renal cortical echotexture is normal. There are numerous small echogenic foci noted in the bilateral kidney consistent with multiple nephroliths. There is mild left hydronephrosis. There is mild right pelviectasis. No suspicious solid mass lesions. Bladder: Pre-void bladder volume is 161 mL. Post-void residual volume was not able to be measured as the patient was unable to void. Pre-void images demonstrate a left sided bladder stone measuring 1.2 x 0.8 x 1.2 cm. On pre-void images, only the left ureteral jet was noted. (Of note, ureteral jets may not be detectable in up to 25% of cases due to insufficient differences in specific gravity between ureteral and bladder urine). Miscellaneous: No free pelvic fluid. Enlarged prostate measuring 6.7 x 6.4 x 5.1 cm. IMPRESSION: 1. Bilateral nephrolithiasis with mild left hydronephrosis and right pelviectasis. 2. A 1.2 cm urinary bladder stone noted within the left side of the urinary bladder. 3. Prostatic enlargement. Dictated by: Anatoliy Tan M.D. on 08/26/2020 at 14:18 Approved by: Anatoliy Tan M.D. on 08/26/2020 at 14:23
== END ==
PROVIDERS: PCP Internal Medicine; Referring Provider Internal Medicine; Visit Provider Internal Medicine
DX: Q62.11 Congenital occlusion of ureteropelvic junction (principal); N13.2 Hydronephrosis with renal and ureteral calculous obstruction; N21.0 Calculus in bladder; N40.0 Benign prostatic hyperplasia without lower urinary tract symptoms
CPT/HCPCS: 76770